=== PATIENT | female | born 1980 | race Caucasian/White ===

== ENCOUNTER → 2016-08-15 | Outpatient (CLI) | payer OTHER ==
--- NOTE | 2016-08-15 15:19 | REP ---
Focused left breast sonography: History: Left breast mass to be. Findings: Left breast is scanned 12 o'clock to 6 o'clock and in the left axilla where the patient tenderness and pain R exhibited. Heterogeneous fibroglandular background echotexture is seen. Multiple normal-appearing lymph nodes are visible in the left axilla. The largest of these measures 1.6 x 0 point second 0.9 cm per no evidence of pathologic adenopathy. No cyst mass or suspicious acoustic shadowing is seen. There are several slightly dilated ducts seen. Impression: Normal fibroglandular tissue seen. Normal lymph node visible in the left axilla. BIRADS category II benign focused left breast and axillary ultrasound. Clinical follow-up is advised. Signed by Bud Magallanes MD 08/15/2016 03:11 P
== END ==
LOC: M RAD 10:43
PROVIDERS: ATTEND Family Medicine
DX: N64.4 Mastodynia (principal); R07.81 Pleurodynia

== ENCOUNTER → 2016-09-18 | Outpatient (CLI) | payer OTHER ==
--- NOTE | 2016-09-18 12:57 | REP ---
CHEST, TWO VIEWS: No comparison. There is no evidence of acute infiltrate. No pleural effusion is seen. The heart is normal in size. The mediastinal silhouette is unremarkable. The visualized osseous structures are intact. IMPRESSION: No acute pulmonary disease. Signed by Rigo Mendoza MD 09/19/2016 09:45 A
== END ==
LOC: M LRY 11:43
PROVIDERS: ATTEND Nurse Practitioner Family
DX: R07.89 Other chest pain (principal)

== ENCOUNTER → 2016-09-18 | Outpatient (REF) | payer OTHER | LOC: M SFHCLERA 11:35 | PROVIDERS: ATTEND Nurse Practitioner Family | DX: R50.9 Fever, unspecified (principal) ==

== ENCOUNTER 2016-09-20 10:24 | Emergency (ER) | payer OTHER ==
[2016-09-20] MEDS ORDERED: diphenhydrAMINE INJ 50MG/ML VIAL (J1200) As Ordered ONE (10:55)
[2016-09-20] MEDS ORDERED: methylPREDNISolone INJ 125 MG/2 ML VIAL (J2930) As Ordered ONE (10:56)
[2016-09-20] MEDS ORDERED: FAMOTIDINE/NS 20 MG/50 ML BAG (S0028) As Ordered ONE (10:56)
--- NOTE | 2016-09-20 12:41 | EDDOCDS ---
Physician Documentation [facility] Name: Kaylene Pappas Age: 36 yrs Sex: Female : 1980 Arrival Date: 09/20/2016 Time: 10:24 Bed I3 / M3 Private MD: Alejo Diaz MD Disposition: 09/20/16 12:19 Discharged to Home/Self Care. Impression: Adverse effect of other nonsteroidal anti-inflammatory drugs [NSAID] - diclofenac, Acute upper respiratory infection, unspecified. - Condition is Stable. - Discharge Instructions: Drug Rash, Drug Allergy, Upper Respiratory Infection, Adult. - Prescriptions for Pepcid 20 mg Oral Tablet - take 1 tablet by ORAL route once daily for 5 days; 5 tablet. Prednisone 20 mg Oral Tablet - take 3 tablets by ORAL route once daily for 4 days start on 09/21/16; 12 tablet. Zithromax Z- Joaquim 250 mg Oral Tablet - take 1 tablet by ORAL route as directed for 5 days Day 1- take two tablets once. Day 2, 3, 4 , 5 take one tablet once daily.; 6 tablet. Benadryl 25 mg Oral Capsule - take 1 capsule by ORAL route every 6 hours As needed; 30 tablet. - Medication Reconciliation, Local Pharmacy Hours form. - Follow up: Emergency Department; When: As needed; Reason: Worsening of conditions. Follow up: Alejo Diaz; When: 1 - 2 days; Reason: Wound/Symptom Recheck, Recheck today's complaints, Continuance of care. - Problem is new. - Symptoms have improved. Historical: - Allergies: diclofenac sodium (lip swelling and blisters ); - Home Meds: 1. ventolin hfa 2. Claritin 10 mg Oral tab 1 tab once daily 3. Zyrtec 10 mg Oral tab 1 tab once daily 4. Flonase 50 mcg/actuation Nasal spsn 2 sprays once daily 5. Julianna 180 mg Oral tab 1 tab once daily 6. magnesium Unknown daily 7. cyclobenzaprine 10 mg Oral tab 1 tab 3 times per day prn 8. diclofenac sodium 75 mg oral TbEC 1 tab 2 times per day - PMHx: chronic right knee pain; Migraines; Seasonal Allergies; - PSHx: D & C; Cholecystectomy; knee surgery; - Social history: Smoking status: Patient states was never smoker of tobacco. No barriers to communication noted, The patient speaks fluent Chinese, Speaks appropriately for age. - Family history: Not pertinent. - : The pt / caregiver states he / she is not on anticoagulants. Home medication list is obtained from the patient. - Exposure Risk Screening:: None identified. 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 0 in. (182.88 cm); Pain 8/10; 11:44 BP 111 / 70; Pulse 97; Resp 18; Pulse Ox 98% on R/A; srm 12:26 BP 115 / 70 RA Sitting (auto/reg); Pulse 90; Resp 16; Temp 100.4(O); Pulse Ox 95% on rs6 R/A; Pain 5/10; 10:25 Body Mass Index 20.34 (68.04 kg, 182.88 cm) dem1 MDM: 10:49 IV Saline Lock ordered. dt4 10:49 Solu-MEDROL 125 mg IVP once ordered. dt4 10:49 Famotidine 20 mg IVPB once over 30 mins; dilute in 50mL of NS ordered. dt4 10:49 diphenhydrAMINE 25 mg IVP once ordered. dt4 10:49 NS 0.9% 500 ml IV at bolus once ordered. dt4 11:23 Financial registration complete. mm15 11:32 [facility] Payment Agreement was scanned into [employer] and attached to record. mm15 Administered Medications: 11:06 Drug: diphenhydrAMINE 25 mg [diphenhydramine 50 mg/mL injection solution (0.5 mL)] srm Route: IVP; Site: left antecubital; 11:06 Drug: NS 0.9% 500 ml [sodium chloride 0.9 % intravenous solution] Route: IV; Rate: srm bolus; Site: left antecubital; 11:07 Drug: Solu-MEDROL 125 mg [Solu-Medrol 500 mg intravenous solution (125 mg)] Route: IVP; srm Site: left antecubital; 11:09 Drug: Famotidine 20 mg [famotidine 10 mg/mL intravenous solution] Route: IVPB; Infused srm Over: 30 mins; Site: left antecubital; 11:30 Follow up: IV Status: Completed infusion srm Signatures: Petrona Garcia RN RN srm Hafner, Jane, RN RN [facility] Mirtha Narayna mm15 Ngozi Almonte PA-C PA-C dt4 The chart was reviewed and I authenticate all verbal orders and agree with the evaluation and treatment provided.Corrections: (The following items were deleted from the chart) 12:19 10:39 Allergies: no known allergies; srm srm Attachments: 11:32 [facility] Payment Agreement mm15 MTDD
--- NOTE | 2016-09-20 12:41 | EDDOCDS ---
Nurse's Notes [facility] Name: Kaylene Pappas Age: 36 yrs Sex: Female : 1980 Arrival Date: 09/20/2016 Time: 10:24 Bed I3 / M3 Private MD: Alejo Diaz MD Diagnosis: Adverse effect of other nonsteroidal anti-inflammatory drugs [NSAID]-diclofenac;Acute upper respiratory infection, unspecified Presentation: 09/20 10:35 Presenting complaint: Patient states: sore throat, vomiting, chest congestion since . went to urgent care on fri and given inhaler and pain meds. blisters noted to lips. Risk factors: Stridor is not present. Drooling is not present. Shortness of breath is not present. Cellulitis is not present. Adult Sepsis Screening: The patient does not have new or worsening altered mentation. Patient's respiratory rate is less than 22. Systolic blood pressure is greater than 100. Patient has a qSOFA score of 0- Negative Sepsis Screen. Suicide/Homicide risk assessment- the patient denies having any suicidal and/or homicidal ideations and does not present with any other emotional, behavioral or mental health complaints. Status: Patient is not a surgical services tech or dependent. Transition of care: patient was not received from another setting of care. 10:35 Acuity: MATT Level 4 srm 10:35 Method Of Arrival: Walkin/Carried/Asstd srm Triage Assessment: 10:39 General: Appears uncomfortable, Behavior is appropriate for age, cooperative. Pain: srm Pain currently is 8 out of 10 on a pain scale. HIV screening NA for this visit Offered previously. EENT: Reports sore throat. Derm: upper lip swelling and blisters noted. 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 ventolin hfa 2. Claritin 10 mg Oral tab 1 tab once daily 3. Zyrtec 10 mg Oral tab 1 tab once daily 4. Flonase 50 mcg/actuation Nasal spsn 2 sprays once daily 5. Julianna 180 mg Oral tab 1 tab once daily 6. magnesium Unknown daily 7. cyclobenzaprine 10 mg Oral tab 1 tab 3 times per day prn 8. diclofenac sodium 75 mg oral TbEC 1 tab 2 times per day - PMHx: chronic right knee pain; Migraines; Seasonal Allergies; - PSHx: D & C; Cholecystectomy; knee surgery; - Social history: Smoking status: Patient states was never smoker of tobacco. No barriers to communication noted, The patient speaks fluent Yi, Speaks appropriately for age. - Family history: Not pertinent. - : The pt / caregiver states he / she is not on anticoagulants. Home medication list is obtained from the patient. - Exposure Risk Screening:: None identified. Screenin:13 Screening information is obtained from the patient. Fall risk: No risks identified. srm Assistance ADL's: requires no assistance with activities of daily living. Abuse/DV Screen: The patient / caregiver reports he/she is: not in a situation that causes fear, pain or injury. Nutritional screening: No deficits noted. Advance Directives: There is no active DNR order. home support is adequate. Assessment: 11:11 General: Appears in no apparent distress, Behavior is appropriate for age, cooperative. srm Neurological: No deficits noted. EENT: tongue white and edges appear jagged. . Respiratory: Airway is patent Respiratory effort is even, unlabored, Breath sounds are clear bilaterally. 11:50 General: Appears in no apparent distress, Behavior is appropriate for age, cooperative, srm resting on stretcher. half popsicle given . 12:37 General: Appears in no apparent distress, uncomfortable, Behavior is appropriate for [facility] age, cooperative, first contact with patient, reviewed discharge instructions, encouraged and answered questions, denies further needs, declines offer of additional assistance. Vital Signs: 10:25 BP 127 / 77; Pulse 98; Resp 18; Temp 98.5(T); Pulse Ox 98% on R/A; Weight 68.04 kg; dem1 Height 6 ft. 0 in. (182.88 cm); Pain 8/10; 11:44 BP 111 / 70; Pulse 97; Resp 18; Pulse Ox 98% on R/A; srm 12:26 BP 115 / 70 RA Sitting (auto/reg); Pulse 90; Resp 16; Temp 100.4(O); Pulse Ox 95% on rs6 R/A; Pain 5/10; 10:25 Body Mass Index 20.34 (68.04 kg, 182.88 cm) dem1 Vitals: 10:25 Log In Time: September 20, 2016 at 10:24. dem1 ED Course: 10:25 Patient visited by Yvonne Thrasher. dem1 10:25 Alejo Diaz is Private Physician. dem1 10:25 Patient moved to Waiting dem1 10:26 Patient moved to Pre RCE dem1 10:36 Triage Initiated srm 10:40 [facility]go[facility] Almonte [facility]. dt4 10:40 Kathi Allred MD is Attending Physician. dt4 10:40 Patient visited by Ngozi Almonte PA-C. dt4 10:40 Patient moved to Triage 1 srm 10:51 Patient moved to I3 / M3 srm 11:06 Inserted saline lock: 20 gauge in left antecubital area. srm 11:13 Patient visited by Petrona Garcia RN. srm 11:13 The patient / caregiver is instructed regarding the plan of care and ED course. srm Accompanied by Significant Other, Patient has correct armband on for positive identification. 11:32 [facility] Payment Agreement was scanned into [employer] and attached to record. mm15 11:51 Patient visited by Petrona Garcia RN. srm 12:18 Patient visited by Ngozi Almonte PA-C. dt4 12:18 Alejo Diaz is Referral Physician. dt4 12:27 Patient visited by Loida Garg PCA. rs6 12:37 Discontinued lock intact, bleeding controlled, pressure dressing applied, No cjh redness/swelling at site. No procedures done that require assistance. Administered Medications: 11:06 Drug: diphenhydrAMINE 25 mg [diphenhydramine 50 mg/mL injection solution (0.5 mL)] srm Route: IVP; Site: left antecubital; 11:06 Drug: NS 0.9% 500 ml [sodium chloride 0.9 % intravenous solution] Route: IV; Rate: srm bolus; Site: left antecubital; 11:07 Drug: Solu-MEDROL 125 mg [Solu-Medrol 500 mg intravenous solution (125 mg)] Route: IVP; srm Site: left antecubital; 11:09 Drug: Famotidine 20 mg [famotidine 10 mg/mL intravenous solution] Route: IVPB; Infused srm Over: 30 mins; Site: left antecubital; 11:30 Follow up: IV Status: Completed infusion srm Order Results: There are currently no results for this order. Outcome: 12:19 Discharge ordered by Provider. dt4 12:37 Discharge Assessment: Patient awake, alert and oriented x 3. No cognitive and/or [facility] functional deficits noted. Patient verbalized understanding of disposition instructions. patient administered narcotics - no. The following High Risk Discharge criteria are identified: None. Discharged to home ambulatory, with significant other. Condition: good Condition: stable Condition: improved. Discharge instructions given to patient, Instructed on discharge instructions, follow up and referral plans. medication usage, Demonstrated understanding of instructions, medications, Pt was receptive of discharge instructions/ teaching. Prescriptions given X 4. No special radiology studies were completed. Property :Personal belongings accompany Pt. 12:40 Patient left the ED. [facility] Signatures: Petrona Garcia, RN RN Yvonne Cassidy dem1 Radha Boyle RN RN [facility] Mirtha Narayan mm15 Ngozi Almonte, PA-C PA-C dt4 Loida Garg, TERRA STAMPING DIE TRY OUT WORKER rs6 Corrections: (The following items were deleted from the chart) 12:19 10:39 Allergies: no known allergies; srm srm MTDD
--- NOTE | 2016-09-22 13:41 | EDDOCDS ---
Nurse's Notes [facility] Name: Kaylene Pappas Age: 36 yrs Sex: Female : 1980 Arrival Date: 09/20/2016 Time: 10:24 Bed I3 / M3 Private MD: Alejo Diaz MD Diagnosis: Adverse effect of other nonsteroidal anti-inflammatory drugs [NSAID]-diclofenac;Acute upper respiratory infection, unspecified Presentation: 09/20 10:35 Presenting complaint: Patient states: sore throat, vomiting, chest congestion since . went to urgent care on fri and given inhaler and pain meds. blisters noted to lips. Risk factors: Stridor is not present. Drooling is not present. Shortness of breath is not present. Cellulitis is not present. Adult Sepsis Screening: The patient does not have new or worsening altered mentation. Patient's respiratory rate is less than 22. Systolic blood pressure is greater than 100. Patient has a qSOFA score of 0- Negative Sepsis Screen. Suicide/Homicide risk assessment- the patient denies having any suicidal and/or homicidal ideations and does not present with any other emotional, behavioral or mental health complaints. 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 Transition of care: patient was not received from another setting of care. 10:35 Acuity: MATT Level 4 srm 10:35 Method Of Arrival: Walkin/Carried/Asstd srm Triage Assessment: 10:39 General: Appears uncomfortable, Behavior is appropriate for age, cooperative. Pain: srm Pain currently is 8 out of 10 on a pain scale. HIV screening NA for this visit Offered previously. EENT: Reports sore throat. Derm: upper lip swelling and blisters noted. 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 ventolin hfa 2. Claritin 10 mg Oral tab 1 tab once daily 3. Zyrtec 10 mg Oral tab 1 tab once daily 4. Flonase 50 mcg/actuation Nasal spsn 2 sprays once daily 5. Julianna 180 mg Oral tab 1 tab once daily 6. magnesium Unknown daily 7. cyclobenzaprine 10 mg Oral tab 1 tab 3 times per day prn 8. diclofenac sodium 75 mg oral TbEC 1 tab 2 times per day - PMHx: chronic right knee pain; Migraines; Seasonal Allergies; - PSHx: D & C; Cholecystectomy; knee surgery; - Social history: Smoking status: Patient states was never smoker of tobacco. No barriers to communication noted, The patient speaks fluent Telugu, Speaks appropriately for age. - Family history: Not pertinent. - : The pt / caregiver states he / she is not on anticoagulants. Home medication list is obtained from the patient. - Exposure Risk Screening:: None identified. Screenin:13 Screening information is obtained from the patient. Fall risk: No risks identified. srm Assistance ADL's: requires no assistance with activities of daily living. Abuse/DV Screen: The patient / caregiver reports he/she is: not in a situation that causes fear, pain or injury. Nutritional screening: No deficits noted. Advance Directives: There is no active DNR order. home support is adequate. Assessment: 11:11 General: Appears in no apparent distress, Behavior is appropriate for age, cooperative. srm Neurological: No deficits noted. EENT: tongue white and edges appear jagged. . Respiratory: Airway is patent Respiratory effort is even, unlabored, Breath sounds are clear bilaterally. 11:50 General: Appears in no apparent distress, Behavior is appropriate for age, cooperative, srm resting on stretcher. half popsicle given . 12:37 General: Appears in no apparent distress, uncomfortable, Behavior is appropriate for [facility] age, cooperative, first contact with patient, reviewed discharge instructions, encouraged and answered questions, denies further needs, declines offer of additional assistance. Vital Signs: 10:25 BP 127 / 77; Pulse 98; Resp 18; Temp 98.5(T); Pulse Ox 98% on R/A; Weight 68.04 kg; dem1 Height 6 ft. 0 in. (182.88 cm); Pain 8/10; 11:44 BP 111 / 70; Pulse 97; Resp 18; Pulse Ox 98% on R/A; srm 12:26 BP 115 / 70 RA Sitting (auto/reg); Pulse 90; Resp 16; Temp 100.4(O); Pulse Ox 95% on rs6 R/A; Pain 5/10; 10:25 Body Mass Index 20.34 (68.04 kg, 182.88 cm) dem1 Vitals: 10:25 Log In Time: September 20, 2016 at 10:24. dem1 ED Course: 10:25 Patient visited by Yvonne Thrasher. dem1 10:25 Alejo Diaz is Private Physician. dem1 10:25 Patient moved to Waiting dem1 10:26 Patient moved to Pre RCE dem1 10:36 Triage Initiated srm 10:40 Ngozi Almonte PA-C is PHCP. dt4 10:40 Kathi Allred MD is Attending Physician. dt4 10:40 Patient visited by Ngozi Almonte PA-C. dt4 10:40 Patient moved to Triage 1 srm 10:51 Patient moved to I3 / M3 srm 11:06 Inserted saline lock: 20 gauge in left antecubital area. srm 11:13 Patient visited by Petrona Garcia RN. srm 11:13 The patient / caregiver is instructed regarding the plan of care and ED course. srm Accompanied by Significant Other, Patient has correct armband on for positive identification. 11:32 [facility] Payment Agreement was scanned into [employer] and attached to record. mm15 11:51 Patient visited by Petrona Garcia RN. srm 12:18 Patient visited by Ngozi Almonte PA-C. dt4 12:18 Alejo Diaz is Referral Physician. dt4 12:27 Patient visited by Loida Garg PCA. rs6 12:37 Discontinued lock intact, bleeding controlled, pressure dressing applied, No cjh redness/swelling at site. No procedures done that require assistance. 14:36 T-Sheet-- Draft Copy was scanned into [employer] and attached to record. gb Administered Medications: 11:06 Drug: diphenhydrAMINE 25 mg [diphenhydramine 50 mg/mL injection solution (0.5 mL)] srm Route: IVP; Site: left antecubital; 11:06 Drug: NS 0.9% 500 ml [sodium chloride 0.9 % intravenous solution] Route: IV; Rate: srm bolus; Site: left antecubital; 11:07 Drug: Solu-MEDROL 125 mg [Solu-Medrol 500 mg intravenous solution (125 mg)] Route: IVP; srm Site: left antecubital; 11:09 Drug: Famotidine 20 mg [famotidine 10 mg/mL intravenous solution] Route: IVPB; Infused srm Over: 30 mins; Site: left antecubital; 11:30 Follow up: IV Status: Completed infusion srm Order Results: There are currently no results for this order. Outcome: 12:19 Discharge ordered by Provider. dt4 12:37 Discharge Assessment: Patient awake, alert and oriented x 3. No cognitive and/or [facility] functional deficits noted. Patient verbalized understanding of disposition instructions. patient administered narcotics - no. The following High Risk Discharge criteria are identified: None. Discharged to home ambulatory, with significant other. Condition: good Condition: stable Condition: improved. Discharge instructions given to patient, Instructed on discharge instructions, follow up and referral plans. medication usage, Demonstrated understanding of instructions, medications, Pt was receptive of discharge instructions/ teaching. Prescriptions given X 4. No special radiology studies were completed. Property :Personal belongings accompany Pt. 12:40 Patient left the ED. [facility] Signatures: Petrona Garcia, RN RN [facility] Magdy, Meseret, Reg Reg gb Yvonne Thrasher dem1 Radha Boyle RN RN [facility] Mirtha Narayan mm15 Ngozi Almonte, PA-C PA-C dt4 Loida Garg, TERRA VICE PRESIDENT SALES rs6 Corrections: (The following items were deleted from the chart) 12:19 10:39 Allergies: no known allergies; srm srm Chart Complete MTDD
--- NOTE | 2016-09-22 13:41 | EDDOCDS ---
Physician Documentation [facility] Name: Kaylene Pappas Age: 36 yrs Sex: Female : 1980 Arrival Date: 09/20/2016 Time: 10:24 Bed I3 / M3 Private MD: Alejo Diaz MD Disposition: 09/20/16 12:19 Discharged to Home/Self Care. Impression: Adverse effect of other nonsteroidal anti-inflammatory drugs [NSAID] - diclofenac, Acute upper respiratory infection, unspecified. - Condition is Stable. - Discharge Instructions: Drug Rash, Drug Allergy, Upper Respiratory Infection, Adult. - Prescriptions for Pepcid 20 mg Oral Tablet - take 1 tablet by ORAL route once daily for 5 days; 5 tablet. Prednisone 20 mg Oral Tablet - take 3 tablets by ORAL route once daily for 4 days start on 09/21/16; 12 tablet. Zithromax Z- Joaquim 250 mg Oral Tablet - take 1 tablet by ORAL route as directed for 5 days Day 1- take two tablets once. Day 2, 3, 4 , 5 take one tablet once daily.; 6 tablet. Benadryl 25 mg Oral Capsule - take 1 capsule by ORAL route every 6 hours As needed; 30 tablet. - Medication Reconciliation, Local Pharmacy Hours form. - Follow up: Emergency Department; When: As needed; Reason: Worsening of conditions. Follow up: Alejo Diaz; When: 1 - 2 days; Reason: Wound/Symptom Recheck, Recheck today's complaints, Continuance of care. - Problem is new. - Symptoms have improved. Historical: - Allergies: diclofenac sodium (lip swelling and blisters ); - Home Meds: 1. ventolin hfa 2. Claritin 10 mg Oral tab 1 tab once daily 3. Zyrtec 10 mg Oral tab 1 tab once daily 4. Flonase 50 mcg/actuation Nasal spsn 2 sprays once daily 5. Julianna 180 mg Oral tab 1 tab once daily 6. magnesium Unknown daily 7. cyclobenzaprine 10 mg Oral tab 1 tab 3 times per day prn 8. diclofenac sodium 75 mg oral TbEC 1 tab 2 times per day - PMHx: chronic right knee pain; Migraines; Seasonal Allergies; - PSHx: D & C; Cholecystectomy; knee surgery; - Social history: Smoking status: Patient states was never smoker of tobacco. No barriers to communication noted, The patient speaks fluent [place], Speaks appropriately for age. - Family history: Not pertinent. - : The pt / caregiver states he / she is not on anticoagulants. Home medication list is obtained from the patient. - Exposure Risk Screening:: None identified. 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 0 in. (182.88 cm); Pain 8/10; 11:44 BP 111 / 70; Pulse 97; Resp 18; Pulse Ox 98% on R/A; srm 12:26 BP 115 / 70 RA Sitting (auto/reg); Pulse 90; Resp 16; Temp 100.4(O); Pulse Ox 95% on rs6 R/A; Pain 5/10; 10:25 Body Mass Index 20.34 (68.04 kg, 182.88 cm) dem1 MDM: 10:49 IV Saline Lock ordered. dt4 10:49 Solu-MEDROL 125 mg IVP once ordered. dt4 10:49 Famotidine 20 mg IVPB once over 30 mins; dilute in 50mL of NS ordered. dt4 10:49 diphenhydrAMINE 25 mg IVP once ordered. dt4 10:49 NS 0.9% 500 ml IV at bolus once ordered. dt4 11:23 Financial registration complete. mm15 11:32 [facility] Payment Agreement was scanned into [facility] and attached to record. mm15 14:36 T-Sheet-- Draft Copy was scanned into [facility] and attached to record. gb Administered Medications: 11:06 Drug: diphenhydrAMINE 25 mg [diphenhydramine 50 mg/mL injection solution (0.5 mL)] srm Route: IVP; Site: left antecubital; 11:06 Drug: NS 0.9% 500 ml [sodium chloride 0.9 % intravenous solution] Route: IV; Rate: srm bolus; Site: left antecubital; 11:07 Drug: Solu-MEDROL 125 mg [Solu-Medrol 500 mg intravenous solution (125 mg)] Route: IVP; srm Site: left antecubital; 11:09 Drug: Famotidine 20 mg [famotidine 10 mg/mL intravenous solution] Route: IVPB; Infused srm Over: 30 mins; Site: left antecubital; 11:30 Follow up: IV Status: Completed infusion srm Signatures: Petrona Garcia, RN RN srm Meseret Curran, Reg Reg gb Radha Boyle RN RN [facility] Mirtha Narayan mm15 Ngozi Almonte PA-C PA-C dt4 The chart was reviewed and I authenticate all verbal orders and agree with the evaluation and treatment provided.Corrections: (The following items were deleted from the chart) 12:19 10:39 Allergies: no known allergies; srm srm Attachments: 11:32 [facility] Payment Agreement mm15 14:36 T-Sheet-- Draft Copy Chart Complete MTDD
--- NOTE | 2016-09-22 13:41 | EDDOCDS ---
Physician Documentation [facility] Name: Kaylene Pappas Age: 36 yrs Sex: Female : 1980 Arrival Date: 09/20/2016 Time: 10:24 Bed I3 / M3 Private MD: Alejo Diaz MD Disposition: 09/20/16 12:19 Discharged to Home/Self Care. Impression: Adverse effect of other nonsteroidal anti-inflammatory drugs [NSAID] - diclofenac, Acute upper respiratory infection, unspecified. - Condition is Stable. - Discharge Instructions: Drug Rash, Drug Allergy, Upper Respiratory Infection, Adult. - Prescriptions for Pepcid 20 mg Oral Tablet - take 1 tablet by ORAL route once daily for 5 days; 5 tablet. Prednisone 20 mg Oral Tablet - take 3 tablets by ORAL route once daily for 4 days start on 09/21/16; 12 tablet. Zithromax Z- Joaquim 250 mg Oral Tablet - take 1 tablet by ORAL route as directed for 5 days Day 1- take two tablets once. Day 2, 3, 4 , 5 take one tablet once daily.; 6 tablet. Benadryl 25 mg Oral Capsule - take 1 capsule by ORAL route every 6 hours As needed; 30 tablet. - Medication Reconciliation, Local Pharmacy Hours form. - Follow up: Emergency Department; When: As needed; Reason: Worsening of conditions. Follow up: Alejo Diaz; When: 1 - 2 days; Reason: Wound/Symptom Recheck, Recheck today's complaints, Continuance of care. - Problem is new. - Symptoms have improved. Historical: - Allergies: diclofenac sodium (lip swelling and blisters ); - Home Meds: 1. ventolin hfa 2. Claritin 10 mg Oral tab 1 tab once daily 3. Zyrtec 10 mg Oral tab 1 tab once daily 4. Flonase 50 mcg/actuation Nasal spsn 2 sprays once daily 5. Julianna 180 mg Oral tab 1 tab once daily 6. magnesium Unknown daily 7. cyclobenzaprine 10 mg Oral tab 1 tab 3 times per day prn 8. diclofenac sodium 75 mg oral TbEC 1 tab 2 times per day - PMHx: chronic right knee pain; Migraines; Seasonal Allergies; - PSHx: D & C; Cholecystectomy; knee surgery; - Social history: Smoking status: Patient states was never smoker of tobacco. No barriers to communication noted, The patient speaks fluent Wolof, Speaks appropriately for age. - Family history: Not pertinent. - : The pt / caregiver states he / she is not on anticoagulants. Home medication list is obtained from the patient. - Exposure Risk Screening:: None identified. 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 0 in. (182.88 cm); Pain 8/10; 11:44 BP 111 / 70; Pulse 97; Resp 18; Pulse Ox 98% on R/A; srm 12:26 BP 115 / 70 RA Sitting (auto/reg); Pulse 90; Resp 16; Temp 100.4(O); Pulse Ox 95% on rs6 R/A; Pain 5/10; 10:25 Body Mass Index 20.34 (68.04 kg, 182.88 cm) dem1 MDM: 10:49 IV Saline Lock ordered. dt4 10:49 Solu-MEDROL 125 mg IVP once ordered. dt4 10:49 Famotidine 20 mg IVPB once over 30 mins; dilute in 50mL of NS ordered. dt4 10:49 diphenhydrAMINE 25 mg IVP once ordered. dt4 10:49 NS 0.9% 500 ml IV at bolus once ordered. dt4 11:23 Financial registration complete. mm15 11:32 [facility] Payment Agreement was scanned into [employer] and attached to record. mm15 14:36 T-Sheet-- Draft Copy was scanned into [employer] and attached to record. gb Administered Medications: 11:06 Drug: diphenhydrAMINE 25 mg [diphenhydramine 50 mg/mL injection solution (0.5 mL)] srm Route: IVP; Site: left antecubital; 11:06 Drug: NS 0.9% 500 ml [sodium chloride 0.9 % intravenous solution] Route: IV; Rate: srm bolus; Site: left antecubital; 11:07 Drug: Solu-MEDROL 125 mg [Solu-Medrol 500 mg intravenous solution (125 mg)] Route: IVP; srm Site: left antecubital; 11:09 Drug: Famotidine 20 mg [famotidine 10 mg/mL intravenous solution] Route: IVPB; Infused srm Over: 30 mins; Site: left antecubital; 11:30 Follow up: IV Status: Completed infusion srm Signatures: Petrona Garcia, RN RN srm Meseret Curran, Reg Reg gb Radha Boyle RN RN [facility] Mirtha Narayan mm15 Ngozi Almonte PA-C PA-C dt4 The chart was reviewed and I authenticate all verbal orders and agree with the evaluation and treatment provided.Corrections: (The following items were deleted from the chart) 12:19 10:39 Allergies: no known allergies; srm srm Attachments: 11:32 [facility] Payment Agreement mm15 14:36 T-Sheet-- Draft Copy Chart Complete MTDD
== END 2016-09-20 12:40 | disposition home or self-care (01) ==
LOC: M ED 10:24
DX: J06.9 Acute upper respiratory infection, unspecified (principal); T39.395A Adverse effect of other nonsteroidal anti-inflammatory drugs [NSAID], initial encounter; G43.909 Migraine, unspecified, not intractable, without status migrainosus; J30.2 Other seasonal allergic rhinitis; Z79.899 Other long term (current) drug therapy; Z88.8 Allergy status to other drugs, medicaments and biological substances

== ENCOUNTER → 2018-05-18 | Outpatient (REF) | payer OTHER | LOC: M SFHCLERA 11:38 | DX: J02.9 Acute pharyngitis, unspecified (principal) ==

== ENCOUNTER 2018-11-05 21:29 | Emergency (ER) | payer OTHER ==
[~2018-11-05] VITALS: Ht 180.3 cm; Wt 65.9 kg
[2018-11-05] MEDS ORDERED: ZYRT10CA PO (21:45)
[2018-11-05] MEDS ORDERED: NS 1,000 ML IV ONE (21:45)
[2018-11-05 22:03] LABS: BASO % 0.5 % (0.0-1.0); EOS # 0.1 10^3/uL (0.0-0.50); EOS % 1.2 % (0.0-3.0); HEMATOCRIT 34.1 % (36.0-47.0); HEMOGLOBIN 11.2 g/dl (12.0-15.5); LYMPH # 1.7 10^3/uL (1.5-4.5); LYMPH % 30.5 % (24.0-44.0); MEAN CORPUSCULAR HEMOGLOBIN 27.5 pg (27.0-33.0); MEAN CORPUSCULAR HGB CONC 32.8 g/dl (32.0-36.5); MEAN CORPUSCULAR VOLUME 83.8 fl (80.0-96.0); MONO # 0.5 10^3/uL (0.0-0.8); MONO % 8.2 % (0.0-5.0); NEUTROPHILS # 3.3 10^3/uL (1.8-7.7); NEUTROPHILS % 59.4 % (36.0-66.0); PLATELET COUNT, AUTOMATED 229 10^3/uL (150-450); RED BLOOD COUNT 4.07 10^6/uL (4.00-5.40); WHITE BLOOD COUNT 5.6 10^3/uL (4.0-10.0)
[2018-11-05 22:38] LABS: BLOOD UREA NITROGEN 11 MG/DL (7-18); CALCIUM LEVEL 8.4 MG/DL (8.5-10.1); CARBON DIOXIDE LEVEL 29 MEQ/L (21-32); CHLORIDE LEVEL 107 MEQ/L (98-107); CREATININE FOR GFR 0.77 MG/DL (0.55-1.30); GLOMERULAR FILTRATION RATE > 60.0 (>60); GLUCOSE, FASTING 94 MG/DL (70-100); HCG, SERUM QUANTITATIVE < 1.0 MIU/ML; POTASSIUM SERUM 3.7 MEQ/L (3.5-5.1); SODIUM LEVEL 140 MEQ/L (136-145)
--- NOTE | 2018-11-06 00:30 | REPVR ---
EXAM: US Pelvis Complete, Transabdominal EXAM DATE/TIME: 11/05/2018 11:51 PM CLINICAL HISTORY: 38 years old, female; Pain; Pelvic pain; Additional info: Heavy vaginal bleeding TECHNIQUE: Imaging protocol: Real-time transabdominal pelvic ultrasound with image documentation. Complete exam. COMPARISON: CT ABD PELVIS W/O CONTRAST 04/20/2015 5:03 PM FINDINGS: Uterus/cervix: The uterus measures 8.6 cm in its cephalocaudad dimension and 1.5 x 6.3 cm in its AP and lateral dimensions transabdominal. The uterus measures 9.0 cm in its cephalocaudad dimension and 4.4 x 6.0 cm in its AP and lateral dimensions transvaginal. The endometrium measures 5 mm. Right adnexa: The right ovary measures 2.2 x 2.7 x 2.0 cm and demonstrates blood flow and follicles. Left adnexa: The left ovary measures 3.9 x 4.7 x 4.1 cm and demonstrates a complex cyst with low level internal homogeneous echoes consistent with a hemorrhagic cyst measuring 3.4 x 3.7 x 3.4 cm. There is left ovarian blood flow about the periphery. Free fluid: None. Bladder: Normal. IMPRESSION: 1. Left ovarian complex cyst consistent with hemorrhagic cyst measuring 3.4 x 3.4 x 3.7 cm. 2. Otherwise negative pelvic sonogram with bilateral ovarian blood flow. Electronically signed by: Deepak Londono On 11/06/2018 00:29:53 AM
[2018-11-06] MEDS ORDERED: FERR325T3 PO (00:37)
[2018-11-06 00:44] VITALS: BP 121/80
== END 2018-11-06 00:45 | disposition home or self-care (01) ==
LOC: M ED 21:29
DX: N92.0 Excessive and frequent menstruation with regular cycle (principal); N83.292 Other ovarian cyst, left side; D50.9 Iron deficiency anemia, unspecified; J30.2 Other seasonal allergic rhinitis; Z79.899 Other long term (current) drug therapy

== ENCOUNTER → 2018-12-08 | Outpatient (CLI) | payer OTHER ==
[~2018-12-08] MED LIST: FERR325T3 PO; ZYRT10CA PO
== END ==
LOC: M SMT 09:56
PROVIDERS: ATTEND Specialist
DX: Z13.79 Encounter for other screening for genetic and chromosomal anomalies (principal)

== ENCOUNTER → 2019-02-15 | Outpatient (REF) | payer OTHER ==
[2019-02-15 11:12] LABS: HEMOGLOBIN 13.1 g/dl (12.0-15.5)
== END ==
LOC: M SFHCLERA 09:31
PROVIDERS: ATTEND Family Medicine
DX: N92.0 Excessive and frequent menstruation with regular cycle (principal)

== ENCOUNTER 2020-04-10 16:24 | Emergency (ER) | payer BC ==
[~2020-04-10] VITALS: Ht 182.9 cm; Wt 64.6 kg
[~2020-04-10 16:24] MED LIST changes: +ALLE60TA69 PO; +CETI5SOL3 PO; +FLON1SPR NARES; +IBUP-1022 PO; +OXYC1TAB23 PO
[2020-04-10 16:25] VITALS: BP 134/84
--- NOTE | 2020-04-10 17:13 | REPVR ---
PROCEDURE INFORMATION: Exam: XR Left Hand Exam date and time: 04/10/2020 4:48 PM Age: 40 years old Clinical indication: Pain; Hand; Left; Additional info: Fall injury TECHNIQUE: Imaging protocol: XR Left hand. Views: 3 or more views. COMPARISON: No relevant prior studies available. FINDINGS: Bones/joints: Bony structures are aligned normally. Degree of osseous mineralization is age-appropriate. No acute fracture. No concerning osseous lesion. Joint spaces of the hand are well-maintained. Soft tissues: No focal soft tissue swelling. No evidence of soft tissue laceration or opaque foreign body. IMPRESSION: Normal radiographic series of the hand. Electronically signed by: Oracio Henriquez On 04/10/2020 17:13:21 PM
[2020-04-10] MEDS ORDERED: KETO10TAB PO (17:51)
[2020-04-10] MEDS ORDERED: NORCO 5/325MG TABLET (BULK FOR ED) PO ONE (18:00)
== END 2020-04-10 18:29 | disposition home or self-care (01) ==
LOC: M ED 16:24
DX: S63.92XA Sprain of unspecified part of left wrist and hand, initial encounter (principal); W01.0XXA Fall on same level from slipping, tripping and stumbling without subsequent striking against object, initial encounter; Y92.9 Unspecified place or not applicable; Y93.9 Activity, unspecified; Y99.9 Unspecified external cause status

== ENCOUNTER 2021-06-22 14:45 | Emergency (ER) | payer BC, OTHER ==
[~2021-06-22] VITALS: Ht 182.9 cm; Wt 69.0 kg
[~2021-06-22 14:45] MED LIST changes: +KETO10TAB PO
--- OUTSIDE RECORDS SUMMARY | 2021-06-22 14:56 | CCD ---
Author Author [facility] Organization [facility] Address Unknown Phone Unavailable Support Name Relationship Address Phone [facility] Next Of Kin [address] [place] [address] NONE, NONE Next Of Kin / /, / / Unavailable CELESTINOCARLOS ENRIQUEDELILAHNEETU Next Of Kin [address] [facility] [address] [place] [address] [employer] Next Of Kin [address] [place] [address] [facility] DI Next Of Kin [address] [place] [address] INDIANRIV* Next Of Kin [id number] [place] [address] [address] [place] [address] [facility] DIST Next Of [facility] [address] [place] [address] [place] [address] UNEMPLOYED Next Of Kin [address] [place] [address] UE Next Of Kin Unknown Unavailable ANTONETTE [place] [address] Unavailable MELQUIADES BRITTON Next Of Kin [address] [facility] [address] [place] [address] BUCK RAMIREZ Next Of Kin [address] [place] [address] NEETU BRITTON ECON [address] [place] [address] Unavailable MELQUIADES BRITTON [address] [place] [address] Unavailable Re-disclosure Warning The records that you are about to access may contain information from federally-assisted alcohol or drug abuse programs. If such information is present, then the following federally mandated warning applies: This information has been disclosed to you from records protected by federal confidentiality rules (42 CFR part 2). The federal rules prohibit you from making any further disclosure of this information unless further disclosure is expressly permitted by the written consent of the person to whom it pertains or as otherwise permitted by 42 CFR part 2. A general authorization for the release of medical or other information is NOT sufficient for this purpose. The Federal rules restrict any use of the information to criminally investigate or prosecute any alcohol or drug abuse patient.The records that you are about to access may contain highly sensitive health information, the redisclosure of which is protected by Article 27-F of the [facility] Public Health law. If you continue you may have access to information: Regarding HIV / AIDS; Provided by facilities licensed or operated by the [facility] Office of Mental Health; or Provided by the [facility] Office for People With Developmental Disabilities. If such information is present, then the following [facility] mandated warning applies: This information has been disclosed to you from confidential records which are protected by state law. State law prohibits you from making any further disclosure of this information without the specific written consent of the person to whom it pertains, or as otherwise permitted by law. Any unauthorized further disclosure in violation of state law may result in a fine or halfway sentence or both. A general authorization for the release of medical or other information is NOT sufficient authorization for further disc losure. Family History Family Member Name Family Member Gender Family Member Status Date o f Status Description Data Source(s) Unknown Unknown Problem MEDENT ([facility]) Unknown Female Problem MEDENT ([facility]) Unknown Female Problem MEDENT ([facility]) Unknown Female Problem MEDENT ([facility]) Unknown Female Problem MEDENT ([facility]) Encounters Encounter Providers Location Date Indications Data Source(s ) Unknown [address] [place] [address] 09/06/2020 12:00:00 AM EST eCW1 ([facility]) Medications No Information Insurance Providers Payer name Policy type / Coverage type Policy ID Covered libertarian ID Covered libertarian's relationship to johnson Policy Johnson Plan Information BLUE CROSS [id number] S [id number] BLUE CROSS [id number] S [id number] BLUE CROSS [id number] S [id number] [facility] [id number] S [id number] [place] Medicaid/CHP/FHP Commercial [id number] Self [id number] [place] Medicaid/CHP/FHP Commercial [id number] Self [place] [id number] S [id number] LAW [place] [id number] S [id number] SELF PAY Unknown ANSI-Not a Secondary Insurance [id number] ANSI-Commercial [id number] Medicaid [facility] Part B [id number] Self [id number] [place] [id number] Self [id number] BOB [id number] 200 Medicaid [facility] Part B [id number] Self [id number] [place] Care [place] Medicaid [id number] Self [id number] ANSI-Commercial [id number] ANSI-Not a Secondary Insurance [id number] BOB [id number] SP [id number] ANSI-Commercial [id number] ANSI-Commercial [id number] ANSI-Commercial [id number] ANSI-Commercial [id number] BOB [id number] SP [id number] [place]ARE [place] O [id number] S [id number] BOB [id number] SP [id number] 200 [place] XIX MAN -RECURRING [id number] 18 [id number] MEDICAID [id number] SP [id number] BOB [id number] 18 [id number] 200 BLUE [place]OSS [id number] S [id number] [place] PPO 302/307 [id number] SP [id number] EXCELLUS BCBS B [id number] S [id number] EXCELLUS BC-BS PPO 306 [id number] SP [id number] [place] PPO 302/307 [id number] SP [id number] BOB [place] [id number] SP [id number] MEDICAID [id number] S [id number] Problems, Conditions, and Diagnoses Code Display Name Description Problem Type Effective Dates Data Source(s) N95.1 Menopause Menopausal and female climacteric states Problem 09/15/2020 12:00:00 AM EST eCW1 ([facility]) Surgeries/Procedures No Information Results No Information Social History No Information
--- NOTE | 2021-06-22 16:02 | REP ---
INDICATION: fall, include tail bone COMPARISON: None. TECHNIQUE: AP, lateral, bilateral oblique, and coned-down views of the lumbar spine. FINDINGS: Alignment and lordosis maintained. Vertebral bodies are intact. No acute fracture/compression injury or subluxation. Disc spaces are relatively normal/age-appropriate. No obvious spondylolysis or spondylolisthesis. IMPRESSION: Normal Lumbosacral Spine series. No acute fracture/compression injury or subluxation. <Electronically signed by David Velazquez > 06/22/21 0419
[2021-06-22] MEDS ORDERED: CYCLOBENZAPRINE 10MG TABLET PO ONE (20:05)
[2021-06-22] MEDS ORDERED: KETOROLAC 60MG 2ML VIAL IM ONE (20:05)
--- OUTSIDE RECORDS SUMMARY | 2021-06-22 20:47 | CCD ---
Author Author [facility] Organization [facility] Address Unknown Phone Unavailable Support Name Relationship Address Phone [place] Next Of Kin [address] [place] [address] [facility] Next Of Kin [address] [place] [address] NONE, NONE Next Of Kin / /, / / Unavailable NEETU BRITTON Next Of Kin [address] [place] [address] [employer] Next Of Kin [address] [place] [address] [facility] DI Next Of Kin [address] [place] [address] INDIANRIV* Next Of Kin [address] [facility] [address] [place] [address] [facility] DIST Next Of Kin [address] [place] [address] [place] [address] UNEMPLOYED Next Of Kin [address] [place] [address] UE Next Of Kin Unknown Unavailable ANTONETTE [place] [address] Unavailable MELQUIADES BRITTON Next Of Kin [address] [facility] [address] [place] [address] BUCK RAMIREZ Next Of Kin [address] [place] [address] NEETU BRITTON ECON [address] [place] [address] Unavailable MELQUIADES BRITTON ECON [address] [place] [address] Unavailable Re-disclosure Warning The records that you [...] is protected by Article 27-F of the [facility] Public Health law. If you continue you may have access to information: Regarding HIV / AIDS; Provided by facilities licensed or operated by the [facility] Office of Mental Health; or Provided by the [facility] Office for People With Developmental Disabilities. If such information is present, then the following [facility] mandated warning applies: This information [...] law may result in a fine or mcfp sentence or both. A general authorization for the release of medical or other information is NOT sufficient authorization for further disc losure. Family History Family Member Name Family Member Gender Family Member Status Date o f Status Description Data Source(s) Unknown Unknown Problem MEDENT ([facility]) Unknown Female Problem MEDENT ([facility]) Unknown Female Problem MEDENT ([facility]) Unknown Female Problem MEDENT ([facility]) Unknown Female Problem MEDENT ([facility] ) Encounters Encounter Providers Location Date Indications Data Source(s ) Unknown [address] [facility] [address] 09/06/2020 12:00:00 AM EST eCW1 ([facility]) Medications No Information Insurance Providers Payer name Policy type / Coverage type Policy ID Covered alliance party ID Covered alliance party's relationship to vu Policy Vu Plan Information BLUE CROSS [id number] S [id number] BLUE CROSS [id number] BLUE CROSS [id number] S [id number] BOB CARE [id number] S [id number] [place] Medicaid/CHP/FHP Commercial [id number] Self [id number] [place]P/FHP Commercial [id number] Self MEDICAID [id number] S [id number] [place] [id number] S [id number] [facility] LAW SED[place] [id number] S [id number] SELF PAY Unknown ANSI-Not a Secondary Insurance [id number] ANSI-Commercial [id number] Medicaid [facility] Part B [id number] Self [id number] [place] Medicaid [id number] Self [id number] BOB [id number] SP [id number] 200 Medicaid [facility] Part B [id number] Self [id number] Bob Care [place] Medicaid [id number] Self [id number] ANSI-Commercial [id number] ANSI-Not a Secondary Insurance [id number] BOB [id number] SP [id number] ANSI-Commercial [id number] ANSI-Commercial [id number] ANSI-Commercial [id number] ANSI-Commercial [id number] BOB [id number] SP [id number] 200 [place] O [id number] S [id number] BOB [id number] SP [id number] 200 [place]IX [place] -RECURRING [id number] 18 [id number] MEDICAID [id number] SP [id number] BOB [id number] 18 [id number] 200 BLUE CROSS [id number] S [id number] [facility] AUTHORITY [id number] SP [id number] [place] PPO 302/307 [id number] SP [id number] EXCELLUS BCBS B [id number] S [id number] EX[place] BC-BS PPO 306 [id number] SP [id number] BCBS [place] PPO 302/307 [id number] SP [id number] BOB [place] [id number] SP [id number] Problems, Conditions, and Diagnoses Code Display Name Description Problem Type Effective Dates Data Source(s) N95.1 Menopause Menopausal and female climacteric states Problem 09/15/2020 12:00:00 AM EST eCW1 ([facility]) Surgeries/Procedures No Information Results No Information Social History No Information
--- NOTE | 2021-06-22 21:00 | REPVR ---
PROCEDURE INFORMATION: Exam: CT Lumbar Spine Without Contrast Exam date and time: 06/22/2021 8:14 PM Age: 41 years old Clinical indication: Injury or trauma; Fall; Blunt trauma (contusions or hematomas); Additional info: Fell, numbness in left leg TECHNIQUE: Imaging protocol: Computed tomography images of the lumbar spine without contrast. Radiation optimization: All CT scans at this facility use at least one of these dose optimization techniques: automated exposure control; mA and/or kV adjustment per patient size (includes targeted exams where dose is matched to clinical indication); or iterative reconstruction. COMPARISON: 1. CR Spine. Lumbosacral, complete 2021-06-22 15:[address] ABD PELVIS W/O CONTRAST 2015-04-20 17:03 FINDINGS: Vertebrae: Normal spinal curvature, vertebral body heights, and alignment. No spinal fracture or acute subluxation. Correlate for left L5 radiculopathy. Discs/Spinal canal/Neural foramina: L4-S1 disc bulging causing, though greatest at L4-L5 with mild moderate spinal stenosis. At most, mild foraminal narrowing throughout. Small left paracentral L4-L5 disc protrusion. Soft tissues: Unremarkable. IMPRESSION: 1. No acute vertebral fracture/subluxation. 2. L4-S1 disc bulging causing, though greatest at L4-L5 with mild moderate spinal stenosis. At most, mild foraminal narrowing throughout. Small left paracentral L4-L5 disc protrusion. Correlate for left L5 radiculopathy. Electronically signed by: Bright Tuttle On 06/22/2021 21:00:20 PM
[2021-06-22] MEDS ORDERED: CYCL-707 PO (21:17)
[2021-06-22] MEDS ORDERED: NAPR-837 PO (21:17)
[2021-06-22 21:25] VITALS: BP 134/98
== END 2021-06-22 21:49 | disposition home or self-care (01) ==
LOC: M ED 14:45
DX: M54.16 Radiculopathy, lumbar region (principal); M51.26 Other intervertebral disc displacement, lumbar region
CPT/HCPCS: 72110; 72131; 96372; 99283; J1885

== ENCOUNTER 2022-11-25 07:55 | Emergency (ER) | payer OTHER ==
[~2022-11-25] VITALS: Ht 180.3 cm; Wt 71.4 kg
[~2022-11-25 07:55] MED LIST changes: +CYCL-707 PO; +NAPR-837 PO
[2022-11-25] MEDS ORDERED: ACET-683 PO (08:06)
[2022-11-25] MEDS ORDERED: KETOROLAC 60MG 2ML VIAL IM ONE (08:15)
[2022-11-25] MEDS ORDERED: diazePAM 10MG/2ML SYRINGE IM ONE (08:15)
[2022-11-25 09:32] VITALS: BP 153/48
[2022-11-25] MEDS ORDERED: METH-1165 PO (09:47)
[2022-11-25] MEDS ORDERED: KETO10TAB PO (09:47)
== END 2022-11-25 09:54 | disposition home or self-care (01) ==
LOC: M ED 07:55
DX: M54.31 Sciatica, right side (principal); M54.50 Low back pain, unspecified; N83.209 Unspecified ovarian cyst, unspecified side
CPT/HCPCS: 96372; 99283; J1885; J3360

== ENCOUNTER 2024-04-19 09:19 | Emergency (ER) | payer OTHER ==
[~2024-04-19] VITALS: Ht 182.9 cm; Wt 75.0 kg
[~2024-04-19 09:19] MED LIST changes: +ACET-683 PO; +METH-1165 PO
[2024-04-19 09:20] VITALS: BP 135/88; TEMP 97.8; O2SAT 98
[2024-04-19] MEDS ORDERED: CLAR1TAB13 PO (09:52)
== END 2024-04-19 12:06 | disposition home or self-care (01) ==
LOC: M ED 09:19
DX: T25.121A Burn of first degree of right foot, initial encounter (principal); X13.1XXA Other contact with steam and other hot vapors, initial encounter; F10.10 Alcohol abuse, uncomplicated; Z90.89 Acquired absence of other organs; Y92.9 Unspecified place or not applicable; Y93.89 Activity, other specified; Y99.0 Civilian activity done for income or pay; Z91.048 Other nonmedicinal substance allergy status; Z79.1 Long term (current) use of non-steroidal anti-inflammatories (NSAID); Z79.899 Other long term (current) drug therapy

== ENCOUNTER 2025-03-22 10:13 | Emergency (ER) | payer OTHER ==
[~2025-03-22] VITALS: Ht 182.9 cm; Wt 75.9 kg
[~2025-03-22 10:13] MED LIST changes: +CLAR1TAB13 PO
[2025-03-22] MEDS ORDERED: NAPR-849 PO (10:22)
[2025-03-22 11:20] VITALS: BP 157/90; TEMP 99.6; O2SAT 99
== END 2025-03-22 11:27 | disposition home or self-care (01) ==
LOC: M ED 11:02
DX: S90.31XA Contusion of right foot, initial encounter (principal); V00.818A Other accident with wheelchair (powered), initial encounter; Y92.89 Other specified places as the place of occurrence of the external cause; Y93.89 Activity, other specified; Y99.0 Civilian activity done for income or pay; Z79.1 Long term (current) use of non-steroidal anti-inflammatories (NSAID)